=== PATIENT | male | born 1955 | race African-American/Black ===

== ENCOUNTER → 2016-07-05 | Outpatient (CLI) | payer OTHER ==
[~2016-07-05] MED LIST: BENTYL20 MG PO; DOLOPHINE HCL10 MG PO; METHADONE10 MG PO; OXYCODONE HCL30 MG PO; ROXICODONE30 MG PO; SIMVASTATIN20 MG PO; ZESTORETIC 20-1 EAC1 NG; ZESTORETIC 20-1 EAC2 PO; ZOCOR20 MG PO; ZOFRAN4 MG PO
== END | disposition home or self-care (01) ==
LOC: CDC
DX: R94.31 Abnormal electrocardiogram [ECG] [EKG] (principal); H43.11 Vitreous hemorrhage, right eye; H33.311 Horseshoe tear of retina without detachment, right eye
CPT/HCPCS: 93000

== ENCOUNTER 2016-07-08 06:55 | Day surgery (SDC) | payer OTHER ==
[~2016-07-08] VITALS: Ht 189.2 cm; Wt 108.9 kg
[2016-07-08 10:25] VITALS: BP 128/86
[2016-07-08 11:08] VITALS: BP 122/88
== END 2016-07-08 11:12 | disposition home or self-care (01) ==
LOC: SDC
DX: H43.11 Vitreous hemorrhage, right eye (principal); H33.021 Retinal detachment with multiple breaks, right eye
CPT/HCPCS: 80306 90; J0690; J3300

== ENCOUNTER 2017-04-04 11:45 | Day surgery (SDC) | payer OTHER ==
[~2017-04-04] VITALS: Ht 189.2 cm; Wt 114.6 kg
[~2017-04-04 11:45] MED LIST changes: +ASPIRIN325 MG PO; +MELOXICAM15 MG PO; +NEURONTIN300 MG PO; +TOPROL XL50 MG PO
[2017-04-04 17:45] VITALS: BP 135/77
[2017-04-04 20:16] VITALS: BP 114/70
[2017-04-04 23:08] VITALS: BP 116/74
[2017-04-05 04:58] VITALS: BP 128/80
[2017-04-05 05:25] LABS: BASOPHIL (%) 0.7 % (0-1); EOSINOPHIL (%) 2.1 % (0-5); EOSINOPHIL COUNT 0.1 K/uL (0-0.3); HEMATOCRIT 36.1 % (38.0-50.0); HEMOGLOBIN 11.9 G/DL (12.5-16.6); IMMATURE GRANULOCYTE (%) 0.2 % (0.0-0.7); LYMPHOCYTE (%) 45.6 % (15-42); LYMPHOCYTE COUNT 2.4 K/uL (1.0-2.8); MCH 30.5 PG (29.0-34.0); MCV 92.6 FL (86-99); MONOCYTE (%) 9.7 % (3-12); MONOCYTE COUNT 0.5 K/uL (0-0.8); NEUTROPHIL (%) 41.7 % (45-76); NEUTROPHIL COUNT 2.2 K/uL (1.8-6.4); PLATELET COUNT 206 K/uL (156-360); RBC DIS.WIDTH-CV 11.9 % (11.8-14.6); RBC DIS.WIDTH-SD 40.8 % (39-53); WHITE BLOOD COUNT 5.4 K/uL (4.1-10.2)
[2017-04-05 05:52] LABS: CHLORIDE 106 MEQ/L (99-109); GFR ESTIMATE (CALCULATED) > 59 mL/min/ (58.99-99999); GLUCOSE 102 mg/dL (70-99); POTASSIUM 3.7 MEQ/L (3.7-5.4); SODIUM 141 MEQ/L (136-147); UREA NITROGEN (BUN) 14 mg/dL (9-23)
[2017-04-05 08:40] VITALS: BP 104/67
[2017-04-05] MEDS ORDERED: CLOPIDOGREL75 MG PO (10:25)
[2017-04-05] MEDS ORDERED: NITROSTAT0.4 MG SL (10:26)
[2017-04-05] MEDS ORDERED: ATORVASTATIN CA40 MG PO (11:22)
== END 2017-04-05 11:54 | disposition home or self-care (01) ==
LOC: CATH 11:45 → ENRESERV 16:29 → 2SOUTH 16:30 → ENRESERV 16:39 → 4EAST 17:45
PROVIDERS: Internal Medicine Cardiovascular Disease
DX: I25.10 Atherosclerotic heart disease of native coronary artery without angina pectoris (principal); I10 Essential (primary) hypertension; E78.2 Mixed hyperlipidemia; Z86.73 Personal history of transient ischemic attack (TIA), and cerebral infarction without residual deficits; Z79.82 Long term (current) use of aspirin; Z87.891 Personal history of nicotine dependence
CPT/HCPCS: 80048; 85025; 85347; 93005; C1725; C1769; C1887; G0378; J1644; J2250; J3010; J3246